=== PATIENT | female | born 1965 | race Caucasian/White ===

== ENCOUNTER → 2017-04-25 | Outpatient (CLI) | payer BC ==
--- NOTE | 2017-04-25 16:00 | KCIC ---
Thyroid ultrasound HISTORY: Thyroid fullness.. On Synthroid for 10 years. COMPARISON: None are available FINDINGS: Right lobe: 3.3 cm x 1.0 cm x 1.4 cm. No focal nodule. Left lobe: 1.4 cm x 1.0 cm x 3.5 cm. Complex nodule at the lower pole measures 8 mm long axis, without significant hypervascularity. Isthmus: 2 mm thickness. IMPRESSION: Small complex nodule or solid mass in the lower pole of the left thyroid, measures 8 mm. Electronically signed by: Segundo Davies MD (04/25/2017 3:57 PM) [id number]
== END | disposition home or self-care (01) ==
LOC: KCIC US 15:02
PROVIDERS: ATTEND Physician Assistant Medical
DX: E04.1 Nontoxic single thyroid nodule (principal)
CPT/HCPCS: 76536

== ENCOUNTER → 2017-11-03 | Outpatient (CLI) | payer BC | END | disposition home or self-care (01) | LOC: KCIC US 13:46 | DX: E04.1 Nontoxic single thyroid nodule (principal) | CPT/HCPCS: 76536 ==

== ENCOUNTER → 2018-10-24 | Outpatient (CLI) | payer BC ==
--- NOTE | 2018-10-24 09:55 | KCIC ---
EXAM: Abdomen sonogram complete; pelvic sonogram. HISTORY: Right lower abdominal pain and pelvic pain. TECHNIQUE: Sonographic imaging of the abdomen was performed. Transabdominal and transvaginal sonographic imaging the pelvis was also performed. COMPARISON: CT dated 03/10/2016. FINDINGS: The exam is limited due to patient body habitus. There is mild hepatomegaly. There is hepatic steatosis. No focal hepatic lesion is seen. The common bile duct is normal in caliber. The gallbladder is unremarkable. The spleen is upper normal in size. The kidneys are unremarkable. The pancreas, aorta and inferior vena cava are partially obscured due to bowel gas. The uterus measures 9.5 x 5.4 x 3.6 cm. The endometrial stripe measures 4.5 mm in thickness. The ovaries are obscured due to body habitus and bowel gas. There is no pelvic free fluid. There is a 1.6 cm posterior left uterine fibroid. IMPRESSION: 1. Hepatomegaly and hepatic steatosis. 2. Small uterine fibroid. 3. Obscured ovaries due to and body habitus and bowel gas. The pancreas, aorta and vena cava are also partially obscured. Electronically signed by: Rosa Aragon MD (10/24/2018 9:52 AM) [id number]
== END | disposition home or self-care (01) ==
LOC: KCIC US 07:35
PROVIDERS: ATTEND Registered Nurse
DX: K76.0 Fatty (change of) liver, not elsewhere classified (principal); D25.9 Leiomyoma of uterus, unspecified; R16.0 Hepatomegaly, not elsewhere classified
CPT/HCPCS: 76700; 76830; 76856

== ENCOUNTER → 2019-01-17 | Outpatient (CLI) | payer BC ==
[~2019-01-17] MED LIST: CHLO4TAB20 PO; ERGO500027 PO; FLUT9.9S NS; GADOTERATE 5 MMOL/10ML VIAL. IVP ONE; LEVO50TA PO; NITR100C62 PO; RANI150C PO; SIMV10TA3 PO
--- NOTE | 2019-01-17 11:55 | KCIC ---
EYE FOR FOREIGN BODY History: Screening for metal prior to MRI Comparison: None. Findings: Single view of the orbits is submitted. No metallic foreign body is identified in the region of orbits. Impression: 1. No metallic foreign body is identified in the region of orbits. Electronically signed by: Jassi Soto MD (01/17/2019 11:52 AM) [id number]
--- NOTE | 2019-01-17 14:02 | KCIC ---
Neck MRA without and with contrast History: Pulsatile tinnitus in right ear Technique: [id number] and postcontrast MR angiography was performed of the neck. Comparison: None Findings: Determination of any degree of stenosis is based on NASCET criteria. Antegrade flow is demonstrated in the bilateral vertebral arteries as well as the bilateral common and internal carotid arteries. No significant stenosis is identified of the cervical arterial vasculature. There is shared origin of the brachiocephalic and left common carotid arteries. There is asymmetric visualization of the right internal jugular vein, some visualization of the sigmoid sinuses bilaterally. There is more prominent venous plexus in the region of the distal right vertebral artery. Impression: 1. There is no significant stenosis of the cervical arterial vasculature. 2. There is asymmetric filling of the right internal jugular vein compared with the left. Findings could be due to incidental slower flow of the left internal jugular vein. However there is more prominent venous plexus near the distal right cervical vertebral artery, underlying fistula connection in this region not excluded. Electronically signed by: Jassi Soto MD (01/17/2019 1:59 PM) [email or web address]
--- NOTE | 2019-01-17 16:49 | KCIC ---
Examination: Ultrasound thyroid HISTORY: History of left thyroid nodule. COMPARISON: 11/03/2017 FINDINGS: The left lobe of the thyroid gland measures 4.4 x 1.1 x 1.1 cm. The right lobe of the thyroid gland measures 4.0 x 1.4 x1.2 cm. A 6.6 mm nodule identified in the inferior right lobe of thyroid gland. A 3.5 mm nodule and a 3.7 mm nodule identified in the left lobe of thyroid gland are identified. These nodules were not evident on prior exam however these a subcentimeter nodules. The previously visualized 6 mm nodule identified in the inferior left lower thyroid gland is not evident on this examination. IMPRESSION: Small bilateral subcentimeter nodules identified in the thyroid gland. Electronically signed by: Noah Garcia MD (01/17/2019 4:46 PM) [place] [id number]
== END | disposition home or self-care (01) ==
LOC: KCIC US 10:31
PROVIDERS: ATTEND Physician Assistant Medical
DX: E04.2 Nontoxic multinodular goiter (principal); H93.11 Tinnitus, right ear
CPT/HCPCS: 70030; 70549; 76536; A9575

== ENCOUNTER → 2019-10-14 | Outpatient (CLI) | payer OTHER, BC ==
[~2019-10-14] MED LIST changes: -GADOTERATE 5 MMOL/10ML VIAL. IVP ONE; +SIMV10TA15 PO; -SIMV10TA3 PO
--- NOTE | 2019-10-14 16:38 | KCIC ---
EXAM: Pelvic Ultrasound Complete INDICATION: Uterine fibroids seen on ultrasound of 10/24/2018 ? TECHNIQUE: Real-time ultrasound of the pelvis with permanent freeze-frame documentation. Technologist reports exam was limited due to patient body habitus. COMPARISON:?Pelvic ultrasound 10/24/2018 ? FINDINGS: ? UTERUS:?Uterus 9.1 x 4.5 x 3.9 cm.? Endometrial thickness 0.3 cm. Subtle dorsal fundal subserosal fibroid identified measuring 2 x 1.6 x 1.0 cm. Previously, this measured 1.6 cm in maximum diameter. ? RIGHT OVARY/ADNEXA: Right ovary 2.0 x 2.4 x 1.2 cm.? Unremarkable. Normal ovarian blood flow. LEFT OVARY/ADNEXA:?Left ovary not well seen. ? OTHER:?No evidence of significant pelvic free fluid. ? IMPRESSION: ? Stable subserosal 2 cm dorsal fundal uterine leiomyoma. Otherwise unremarkable transabdominal pelvic ultrasound with nonvisualized left ovary. Electronically signed by: Nidia Tejeda MD (10/14/2019 4:35 PM) [id number]
== END | disposition home or self-care (01) ==
LOC: KCIC US 15:23
PROVIDERS: ATTEND Registered Nurse
DX: D25.2 Subserosal leiomyoma of uterus (principal)
CPT/HCPCS: 76856

== ENCOUNTER → 2020-11-26 | Outpatient (CLI) | payer OTHER, BC ==
--- NOTE | 2020-11-27 07:19 | KCIC ---
Exam performed: Thyroid ultrasound. Indication: Follow-up thyroid nodules, neck fullness. Date of Service: 11/26/2020. Comparison: Several prior thyroid ultrasound dating back to 2016 and incl uding the most recent thyroid ultrasound from 2018. Technique: Real-time grayscale imaging of the thyroid gland is performed and images are obtained. Findings: The thyroid gland is homogeneous in echotexture . The right lobe measures 4.4 x 1.5 x 1.5 cm whereas the left lobe measures 4.5 x 1.3 x 0.99 cm. The t hyroid isthmus measures 2.8 mm. Multiple subcentimeter hypoechoic nodules are seen scattered throughout both lobes of the thyroid gla nd which appears similar to the previous exam. Impression: 1. Multiple subcentimeter thyroid nodules appears similar. Electronically signed by: Jazmin Francisco MD (11/27/2020 7:17 AM) [id number]
== END ==
LOC: KCIC US 14:22
PROVIDERS: ATTEND Physician Assistant Medical
DX: E04.2 Nontoxic multinodular goiter (principal); R22.1 Localized swelling, mass and lump, neck
CPT/HCPCS: 76536